=== PATIENT | male | born 1960 | race African-American/Black ===

== ENCOUNTER 2017-10-14 22:37 | Emergency (ER) | payer SELFPAY ==
[~2017-10-14] VITALS: Ht 175.3 cm; Wt 63.5 kg
[2017-10-14 22:58] VITALS: Ht 175.3 cm; Wt 63.5 kg
[2017-10-14] MEDS ORDERED: HYDROCHLOROTH12.5 M1 PO (22:59)
[2017-10-14] MEDS ORDERED: FLOMAX0.4 MG PO (22:59)
[2017-10-14 23:33] LABS: APPEARANCE CLEAR (CLEAR); BILIRUBIN NEGATIVE (NEGATIVE); COLOR YELLOW (YELLOW); GLUCOSE NEGATIVE (NEGATIVE); KETONE NEGATIVE (NEGATIVE); NITRITE NEGATIVE (NEGATIVE); PROTEIN NEGATIVE (NEGATIVE); SPECIFIC GRAVITY 1.015 (1.005-1.020); UROBILINOGEN NORMAL (NORMAL)
[2017-10-14 23:35] LABS: BACTERIA NONE SEEN /hpf (NONE SEEN); EPITHELIAL CELLS 0-5 /hpf (0-5); RED CELLS - URINE 0-5 /hpf (0-5); WHITE CELLS - URINE NSEEN /hpf (0-5)
[2017-10-15 01:27] VITALS: BP 131/79
== END 2017-10-15 01:27 | disposition home or self-care (01) ==
LOC: D.ER 22:37
PROVIDERS: Emergency Medicine
DX: N13.9 Obstructive and reflux uropathy, unspecified (principal); F17.200 Nicotine dependence, unspecified, uncomplicated

== ENCOUNTER 2017-10-21 22:20 | Emergency (ER) | payer SELFPAY ==
[~2017-10-21] VITALS: Ht 175.3 cm; Wt 84.1 kg
[~2017-10-21 22:20] MED LIST: FLOMAX0.4 MG PO; HYDROCHLOROTH12.5 M1 PO
[2017-10-21 22:31] VITALS: Ht 175.3 cm; Wt 84.1 kg
[2017-10-21 23:15] LABS: APPEARANCE HAZY (CLEAR); BACTERIA MODERATE /hpf (NONE SEEN); BILIRUBIN NEGATIVE (NEGATIVE); COLOR YELLOW (YELLOW); EPITHELIAL CELLS 0-5 /hpf (0-5); GLUCOSE NEGATIVE (NEGATIVE); KETONE NEGATIVE (NEGATIVE); NITRITE NEGATIVE (NEGATIVE); PROTEIN TRACE mg/dL (NEGATIVE); UROBILINOGEN NORMAL (NORMAL); WHITE CELLS - URINE 25-50 /hpf (0-5)
[2017-10-21 23:23] LABS: HEMATOCRIT 42.3 % (42.0-54.0); HEMOGLOBIN 14.1 g/dL (13.5-17.5); LYMPHOCYTES 17.4 % (15-50); MCH 27.9 pg (26.0-34.0); MCHC 33.3 g/dL (31.0-37.0); MCV 83.6 fL (80.0-100.0); MEAN PLATELET VOLUME 9.2 fL (7.4-10.4); NEUTROPHILS 77.3 % (40-80); PLATELET COUNT 147 10x3/uL (130-400); RBC 5.06 10x6/uL (4.20-6.10); RDW 14.9 % (11.5-14.5); WBC 6.1 10x3/uL (4.8-10.8)
[2017-10-21 23:44] LABS: ALBUMIN 3.2 g/dL (3.4-5.0); ALKALINE PHOSPHATASE 102 U/L (46-116); ALT (SGPT) 21 U/L (10-68); BILIRUBIN - TOTAL 0.32 mg/dL (0.2-1.3); CALC OSMOLALITY 265 mosm/kg (275-300); CALCIUM 8.7 mg/dL (8.5-10.1); CARBON DIOXIDE 29.2 mmol/L (21.0-32.0); CHLORIDE - SERUM 98 mmol/L (98-107); CREATININE - SERUM 0.8 mg/dL (0.6-1.3); GLUCOSE 112 mg/dL (74-106); POTASSIUM - SERUM 3.3 mmol/L (3.5-5.1); PROTEIN - SERUM 6.6 g/dL (6.4-8.2); SODIUM 133 mmol/L (136-145); UREA NITROGEN 10 mg/dL (7-18); eGFR NON AFRICAN AMERICAN > 90 mL/min (90-120)
[2017-10-21] MEDS ORDERED: CIPRO500 MG PO (23:51)
[2017-10-22 00:07] VITALS: BP 118/74
== END 2017-10-22 00:07 | disposition home or self-care (01) ==
LOC: D.ER 22:20
PROVIDERS: Family Medicine
DX: N39.0 Urinary tract infection, site not specified (principal); N40.0 Benign prostatic hyperplasia without lower urinary tract symptoms; F17.200 Nicotine dependence, unspecified, uncomplicated

== ENCOUNTER 2019-07-18 13:11 | Emergency (ER) | payer OTHER ==
[~2019-07-18] VITALS: Ht 175.3 cm; Wt 64.5 kg
[~2019-07-18 13:11] MED LIST changes: +CIPRO500 MG PO
[2019-07-18 13:47] VITALS: Ht 175.3 cm; Wt 64.5 kg
[2019-07-18] MEDS ORDERED: ALBUTEROL SULF8.5 GM (13:50)
[2019-07-18 14:56] LABS: BASOPHILS 0.3 % (0-2); EOSINOPHILS 2.3 % (0-7); HEMATOCRIT 42.4 % (42.0-54.0); HEMOGLOBIN 13.8 g/dL (13.5-17.5); IMMATURE GRANULOCYTES 0.2 % (0-5); LYMPHOCYTES 16.4 % (15-50); MCH 27.5 pg (26.0-34.0); MCHC 32.5 g/dL (31.0-37.0); MCV 84.5 fL (80.0-100.0); MEAN PLATELET VOLUME 9.6 fL (7.4-10.4); NEUTROPHILS 71.8 % (40-80); RBC 5.02 10x6/uL (4.20-6.10); RDW 15.4 % (11.5-14.5)
[2019-07-18 15:00] LABS: PLATELET COUNT 178 10x3/uL (130-400)
[2019-07-18 15:10] LABS: INR 0.99 (0.85-1.17)
[2019-07-18 15:29] LABS: CALC OSMOLALITY 279 mosm/kg (275-300); CALCIUM 8.5 mg/dL (8.5-10.1); CARBON DIOXIDE 26.4 mmol/L (21.0-32.0); CHLORIDE - SERUM 104 mmol/L (98-107); CREATININE - SERUM 0.8 mg/dL (0.6-1.3); GLUCOSE 86 mg/dL (74-106); POTASSIUM - SERUM 3.2 mmol/L (3.5-5.1); SODIUM 142 mmol/L (136-145); UREA NITROGEN 8 mg/dL (7-18); eGFR NON AFRICAN AMERICAN > 90 mL/min (90-120)
[2019-07-18 15:46] LABS: ALBUMIN 3.6 g/dL (3.4-5.0); ALKALINE PHOSPHATASE 117 U/L (30-120); ALT (SGPT) 32 U/L (10-68); BILIRUBIN - TOTAL 0.57 mg/dL (0.2-1.3); CKMB 6.3 U/L (0.0-3.6); CREATINE KINASE 386 UL (21-232); PRO BNP 66 pg/mL (0-125); PROTEIN - SERUM 6.9 g/dL (6.4-8.2)
[2019-07-18 16:04] LABS: TROPONIN-I < 0.017 ng/mL (0.000-0.060)
[2019-07-18] MEDS ORDERED: MEDROL DOSE PACK4 MG PO (17:28)
[2019-07-18] MEDS ORDERED: MUCINEX DM ER1 EAC1 PO (17:28)
[2019-07-18] MEDS ORDERED: ALBUTEROL SULF8.5 GM INH (17:28)
[2019-07-18 19:30] VITALS: BP 169/97
== END 2019-07-18 19:30 | disposition home or self-care (01) ==
LOC: D.ER 13:11
PROVIDERS: Family Medicine
DX: R05 Cough (principal); R06.02 Shortness of breath; I10 Essential (primary) hypertension; J44.9 Chronic obstructive pulmonary disease, unspecified

== ENCOUNTER 2019-08-12 20:30 | Emergency (ER) | payer OTHER ==
[~2019-08-12] VITALS: Ht 175.3 cm; Wt 61.8 kg
[~2019-08-12 20:30] MED LIST changes: +ALBUTEROL SULF8.5 GM; +ALBUTEROL SULF8.5 GM INH; +MEDROL DOSE PACK4 MG PO; +MUCINEX DM ER1 EAC1 PO
[2019-08-12 20:39] VITALS: Ht 175.3 cm; Wt 61.8 kg
[2019-08-12 21:38] LABS: BASOPHILS 0.6 % (0-2); EOSINOPHILS 4.9 % (0-7); HEMATOCRIT 44.2 % (42.0-54.0); HEMOGLOBIN 14.3 g/dL (13.5-17.5); IMMATURE GRANULOCYTES 0.1 % (0-5); MCH 27.6 pg (26.0-34.0); MCHC 32.4 g/dL (31.0-37.0); MCV 85.2 fL (80.0-100.0); MONOCYTES 7.3 % (2-11); NEUTROPHILS 65.1 % (40-80); RBC 5.19 10x6/uL (4.20-6.10); RDW 15.1 % (11.5-14.5); WBC 7.1 10x3/uL (4.8-10.8)
[2019-08-12 21:40] LABS: PLATELET COUNT 232 10x3/uL (130-400)
[2019-08-12] MEDS ORDERED: STERAPRED DS 1010 MG PO (22:12)
[2019-08-12] MEDS ORDERED: GUAIFEN-CODEINE10 ML PO (22:12)
[2019-08-12 22:21] LABS: CALC OSMOLALITY 275 mosm/kg (275-300); CALCIUM 8.9 mg/dL (8.5-10.1); CARBON DIOXIDE 23.7 mmol/L (21.0-32.0); CHLORIDE - SERUM 103 mmol/L (98-107); CREATININE - SERUM 0.9 mg/dL (0.6-1.3); GLUCOSE 101 mg/dL (74-106); POTASSIUM - SERUM 3.7 mmol/L (3.5-5.1); SODIUM 138 mmol/L (136-145); UREA NITROGEN 13 mg/dL (7-18); eGFR NON AFRICAN AMERICAN > 90 mL/min (90-120)
[2019-08-12 22:27] LABS: ALKALINE PHOSPHATASE 110 U/L (30-120); ALT (SGPT) 21 U/L (10-68)
[2019-08-12 22:40] VITALS: BP 159/91
== END 2019-08-12 22:40 | disposition home or self-care (01) ==
LOC: D.ER 20:30
PROVIDERS: Emergency Medicine
DX: J44.0 Chronic obstructive pulmonary disease with (acute) lower respiratory infection (principal); I10 Essential (primary) hypertension; Z72.0 Tobacco use; R06.02 Shortness of breath; R05 Cough

== ENCOUNTER 2019-09-14 10:30 | Emergency (ER) | payer OTHER ==
[~2019-09-14] VITALS: Ht 175.3 cm; Wt 61.8 kg
[~2019-09-14 10:30] MED LIST changes: +GUAIFEN-CODEINE10 ML PO; +STERAPRED DS 1010 MG PO
[2019-09-14 10:56] VITALS: Ht 175.3 cm; Wt 61.8 kg
[2019-09-14 11:15] LABS: BASOPHILS 0.6 % (0-2); EOSINOPHILS 3.7 % (0-7); HEMATOCRIT 44.8 % (42.0-54.0); HEMOGLOBIN 14.7 g/dL (13.5-17.5); LYMPHOCYTES 29.5 % (15-50); MCHC 32.8 g/dL (31.0-37.0); MCV 85.3 fL (80.0-100.0); MEAN PLATELET VOLUME 9.6 fL (7.4-10.4); MONOCYTES 10.7 % (2-11); NEUTROPHILS 55.5 % (40-80); RBC 5.25 10x6/uL (4.20-6.10); RDW 14.6 % (11.5-14.5); WBC 3.6 10x3/uL (4.8-10.8)
[2019-09-14 11:20] LABS: PLATELET COUNT 158 10x3/uL (130-400)
[2019-09-14 11:26] LABS: CALC OSMOLALITY 276 mosm/kg (275-300); CALCIUM 8.8 mg/dL (8.5-10.1); CARBON DIOXIDE 33.7 mmol/L (21.0-32.0); CHLORIDE - SERUM 104 mmol/L (98-107); GLUCOSE 83 mg/dL (74-106); POTASSIUM - SERUM 3.6 mmol/L (3.5-5.1); SODIUM 139 mmol/L (136-145); UREA NITROGEN 13 mg/dL (7-18); eGFR NON AFRICAN AMERICAN 81 mL/min (90-120)
[2019-09-14 11:29] LABS: INR 0.91 (0.85-1.17); PROTIME 12.2 SECONDS (11.6-15.0)
[2019-09-14 11:41] LABS: ALBUMIN 3.5 g/dL (3.4-5.0); ALKALINE PHOSPHATASE 110 U/L (30-120); ALT (SGPT) 22 U/L (10-68); BILIRUBIN - TOTAL 0.54 mg/dL (0.2-1.3); CKMB 2.1 U/L (0.0-3.6); CREATINE KINASE 199 UL (21-232); PRO BNP 136 pg/mL (0-125); PROTEIN - SERUM 7.2 g/dL (6.4-8.2)
[2019-09-14 11:42] LABS: TROPONIN-I < 0.017 ng/mL (0.000-0.060)
[2019-09-14] MEDS ORDERED: AUGMENTIN 875-11 TAB PO (11:45)
[2019-09-14] MEDS ORDERED: FLUTICASONE PRO16 GM NASAL (11:45)
[2019-09-14 12:03] VITALS: BP 136/84
== END 2019-09-14 12:04 | disposition home or self-care (01) ==
LOC: D.ER 10:30
PROVIDERS: Family Medicine
DX: J01.90 Acute sinusitis, unspecified (principal); J44.9 Chronic obstructive pulmonary disease, unspecified; I10 Essential (primary) hypertension

== ENCOUNTER 2019-09-25 13:41 | Emergency (ER) | payer MEDICAID ==
[~2019-09-25] VITALS: Ht 175.3 cm; Wt 62.7 kg
[~2019-09-25 13:41] MED LIST changes: +AUGMENTIN 875-11 TAB PO; +FLUTICASONE PRO16 GM NASAL
[2019-09-25 14:09] VITALS: BP 145/90; Ht 175.3 cm; Wt 62.7 kg
[2019-09-25 14:52] LABS: BASOPHILS 0.6 % (0-2); EOSINOPHILS 6.7 % (0-7); HEMATOCRIT 44.1 % (42.0-54.0); HEMOGLOBIN 14.6 g/dL (13.5-17.5); IMMATURE GRANULOCYTES 0.2 % (0-5); LYMPHOCYTES 22.8 % (15-50); MCH 27.7 pg (26.0-34.0); MCHC 33.1 g/dL (31.0-37.0); MCV 83.5 fL (80.0-100.0); MEAN PLATELET VOLUME 9.6 fL (7.4-10.4); MONOCYTES 9.7 % (2-11); PLATELET COUNT 168 10x3/uL (130-400); RBC 5.28 10x6/uL (4.20-6.10)
[2019-09-25 15:09] LABS: CALC OSMOLALITY 269 mosm/kg (275-300); CALCIUM 8.6 mg/dL (8.5-10.1); CARBON DIOXIDE 28.8 mmol/L (21.0-32.0); CHLORIDE - SERUM 102 mmol/L (98-107); GLUCOSE 96 mg/dL (74-106); POTASSIUM - SERUM 3.3 mmol/L (3.5-5.1); SODIUM 136 mmol/L (136-145); UREA NITROGEN 8 mg/dL (7-18); eGFR NON AFRICAN AMERICAN 81 mL/min (90-120)
[2019-09-25 15:11] LABS: APTT 39.2 SECONDS (22.8-39.4); INR 1.08 (0.85-1.17); PROTIME 13.9 SECONDS (11.6-15.0)
[2019-09-25] MEDS ORDERED: MUCINEX600 MG PO (15:19)
[2019-09-25 15:23] LABS: ALBUMIN 3.3 g/dL (3.4-5.0); ALKALINE PHOSPHATASE 120 U/L (30-120); ALT (SGPT) 18 U/L (10-68); BILIRUBIN - TOTAL 0.62 mg/dL (0.2-1.3); CKMB 2.6 U/L (0.0-3.6); CREATINE KINASE 242 UL (21-232); PRO BNP 38 pg/mL (0-125); PROTEIN - SERUM 6.9 g/dL (6.4-8.2); TROPONIN-I < 0.017 ng/mL (0.000-0.060)
== END 2019-09-25 15:56 | disposition home or self-care (01) ==
LOC: D.ER 13:41
PROVIDERS: Family Medicine
DX: R06.02 Shortness of breath (principal); R05 Cough; E87.6 Hypokalemia; I10 Essential (primary) hypertension; J44.9 Chronic obstructive pulmonary disease, unspecified; Z77.22 Contact with and (suspected) exposure to environmental tobacco smoke (acute) (chronic)

== ENCOUNTER 2020-06-30 11:08 | Emergency (ER) | payer OTHER ==
[~2020-06-30] VITALS: Ht 175.3 cm; Wt 63.2 kg
[~2020-06-30 11:08] MED LIST changes: +B/P MED; +MUCINEX600 MG PO
[2020-06-30 11:19] VITALS: Ht 175.3 cm; Wt 63.2 kg
[2020-06-30 11:51] LABS: EOSINOPHILS 4.3 % (0-7); HEMATOCRIT 44.6 % (42.0-54.0); HEMOGLOBIN 14.5 g/dL (13.5-17.5); LYMPHOCYTE ABS# 1.43 10x3/uL (1.32-3.57); MCH 27.3 pg (26.0-34.0); MCHC 32.5 g/dL (31.0-37.0); MCV 83.8 fL (80.0-100.0); MEAN PLATELET VOLUME 9.5 fL (7.4-10.4); MONOCYTES 5.9 % (2-11); NEUTROPHIL ABS# 3.11 10x3/uL (1.78-5.38); NEUTROPHILS 60.8 % (40-80); PLATELET COUNT 201 10x3/uL (130-400); RBC 5.32 10x6/uL (4.20-6.10); WBC 5.1 10x3/uL (4.8-10.8)
[2020-06-30 12:26] LABS: APTT 36.1 SECONDS (22.8-39.4)
[2020-06-30 12:32] LABS: INR 1.05 (0.85-1.17); PROTIME 12.7 SECONDS (11.6-15.0)
[2020-06-30 12:42] LABS: ALBUMIN 3.4 g/dL (3.4-5.0); ALKALINE PHOSPHATASE 117 U/L (30-120); ALT (SGPT) 19 U/L (10-68); BILIRUBIN - TOTAL 0.42 mg/dL (0.2-1.3); CALCIUM 8.6 mg/dL (8.5-10.1); CHLORIDE - SERUM 101 mmol/L (98-107); CKMB 5.2 U/L (0.0-3.6); CREATINE KINASE 282 UL (21-232); CREATININE - SERUM 1.1 mg/dL (0.6-1.3); PRO BNP 46 pg/mL (0-125); PROTEIN - SERUM 7.1 g/dL (6.4-8.2); SODIUM 135 mmol/L (136-145); UREA NITROGEN 13 mg/dL (7-18); eGFR NON AFRICAN AMERICAN 72 mL/min (90-120)
[2020-06-30 12:56] LABS: CALC OSMOLALITY 272 mosm/kg (275-300); GLUCOSE 155 mg/dL (74-106)
[2020-06-30 12:58] LABS: POTASSIUM - SERUM 2.9 mmol/L (3.5-5.1); TROPONIN-I < 0.017 ng/mL (0.000-0.060)
[2020-06-30] MEDS ORDERED: PROAIR HFA8.5 G1 INH (13:32)
[2020-06-30] MEDS ORDERED: MEDROL DOSE PACK4 MG PO (13:32)
[2020-06-30 13:55] VITALS: BP 144/86
== END 2020-06-30 14:07 | disposition home or self-care (01) ==
LOC: D.ER 11:08
PROVIDERS: Family Medicine
DX: J45.909 Unspecified asthma, uncomplicated (principal); I10 Essential (primary) hypertension; Z72.0 Tobacco use

== ENCOUNTER 2020-07-04 03:24 | Emergency (ER) | payer OTHER ==
[~2020-07-04] VITALS: Ht 175.3 cm; Wt 67.3 kg
[~2020-07-04 03:24] MED LIST changes: +PROAIR HFA8.5 G1 INH
[2020-07-04 03:41] VITALS: Ht 175.3 cm; Wt 67.3 kg
[2020-07-04 04:14] LABS: BASOPHILS 0.5 % (0-2); EOSINOPHILS 6.8 % (0-7); HEMATOCRIT 44.1 % (42.0-54.0); HEMOGLOBIN 14.4 g/dL (13.5-17.5); LYMPHOCYTE ABS# 1.71 10x3/uL (1.32-3.57); LYMPHOCYTES 44.6 % (15-50); MCH 27.3 pg (26.0-34.0); MCHC 32.7 g/dL (31.0-37.0); MCV 83.5 fL (80.0-100.0); MEAN PLATELET VOLUME 9.8 fL (7.4-10.4); MONOCYTES 6.8 % (2-11); NEUTROPHIL ABS# 1.58 10x3/uL (1.78-5.38); NEUTROPHILS 41.3 % (40-80); PLATELET COUNT 195 10x3/uL (130-400); RBC 5.28 10x6/uL (4.20-6.10); RDW 15.1 % (11.5-14.5); WBC 3.8 10x3/uL (4.8-10.8)
[2020-07-04 04:20] LABS: CALC OSMOLALITY 279 mosm/kg (275-300); CALCIUM 8.3 mg/dL (8.5-10.1); CARBON DIOXIDE 27.4 mmol/L (21.0-32.0); CHLORIDE - SERUM 105 mmol/L (98-107); CREATININE - SERUM 0.9 mg/dL (0.6-1.3); POTASSIUM - SERUM 3.8 mmol/L (3.5-5.1); SODIUM 140 mmol/L (136-145); UREA NITROGEN 15 mg/dL (7-18); eGFR NON AFRICAN AMERICAN > 90 mL/min (90-120)
[2020-07-04 04:26] LABS: APTT 33.1 SECONDS (22.8-39.4); GLUCOSE 93 mg/dL (74-106); INR 1.02 (0.85-1.17); PROTIME 12.4 SECONDS (11.6-15.0)
[2020-07-04 04:37] LABS: ALBUMIN 3.1 g/dL (3.4-5.0); ALKALINE PHOSPHATASE 114 U/L (30-120); ALT (SGPT) 20 U/L (10-68); BILIRUBIN - TOTAL 0.37 mg/dL (0.2-1.3); CKMB 3.4 U/L (0.0-3.6); CREATINE KINASE 266 UL (21-232); PRO BNP 44 pg/mL (0-125); PROTEIN - SERUM 6.7 g/dL (6.4-8.2)
[2020-07-04 04:39] LABS: TROPONIN-I < 0.017 ng/mL (0.000-0.060)
[2020-07-04] MEDS ORDERED: VISTARIL25 MG PO (06:35)
[2020-07-04 06:48] VITALS: BP 112/68
== END 2020-07-04 06:45 | disposition home or self-care (01) ==
LOC: D.ER 03:24
PROVIDERS: Family Medicine
DX: F41.9 Anxiety disorder, unspecified (principal); J44.1 Chronic obstructive pulmonary disease with (acute) exacerbation; Z72.0 Tobacco use

== ENCOUNTER 2020-08-31 00:54 | Emergency (ER) | payer OTHER ==
[~2020-08-31] VITALS: Ht 175.3 cm; Wt 63.6 kg
[~2020-08-31 00:54] MED LIST changes: +VISTARIL25 MG PO
[2020-08-31 00:59] VITALS: Ht 175.3 cm; Wt 63.6 kg
[2020-08-31] MEDS ORDERED: FLUTICASONE PRO16 GM NASAL (02:29)
[2020-08-31] MEDS ORDERED: PREDNISONE20 MG PO (02:29)
[2020-08-31 02:37] VITALS: BP 137/80
== END 2020-08-31 02:37 | disposition home or self-care (01) ==
LOC: D.ER 00:54
DX: J01.90 Acute sinusitis, unspecified (principal); J44.9 Chronic obstructive pulmonary disease, unspecified; Z72.0 Tobacco use